=== PATIENT | male | born 1990 | race Caucasian/White ===

== ENCOUNTER 2019-03-10 10:47 | Emergency (ER) | payer OTHER ==
[~2019-03-10] VITALS: Ht 193 cm; Wt 140.9 kg
[2019-03-10 10:52] VITALS: BP 169/91
[2019-03-10] MEDS ORDERED: MEDROL 4MG DOSPA4 MG PO (12:40)
[2019-03-10] MEDS ORDERED: NORCO 325 MG-7.1 TAB PO (12:40)
[2019-03-10] MEDS ORDERED: FLEXERIL 1010 MG/TAB PO (12:40)
[2019-03-10] MEDS ORDERED: LIDODERM 5% PATC1 EA TP (12:40)
[2019-03-10 12:59] VITALS: PULSE 106; TEMP 98.4
== END 2019-03-10 13:00 | disposition home or self-care (01) ==
LOC: COL.ER 10:47
DX: S39.012A Strain of muscle, fascia and tendon of lower back, initial encounter (principal); M54.41 Lumbago with sciatica, right side; X50.1XXA Overexertion from prolonged static or awkward postures, initial encounter
CPT/HCPCS: J1885